=== PATIENT | female | born 1990 | race Caucasian/White ===

== ENCOUNTER 2016-12-21 11:21 | Emergency (ER) ==
--- NOTE | 2016-12-21 11:48 | PROVIDER DOCUMENTATION ---
HPI-Respiratory General - General Chief Complaint: Cold Symptoms Stated Complaint: FEVER,LEFT EAR PAIN,COUGHING,CONGESTED Time Seen by Provider: 12/21/16 11:36 Source: patient Allergies/Adverse Reactions: Patient Allergies Allergy/AdvReac Type Severity Reaction Status Date / Time No Known Allergies Allergy Verified 12/21/16 11:38 Home Medications: Home Medication List Medication Instructions Recorded Confirmed Last Taken Type Amoxicillin [Amoxil] 875 mg PO BID #14 tablet 12/21/16 Unknown Rx Benzonatate [Tessalon] 100 mg PO TID PRN PRN #20 capsule 12/21/16 Unknown Rx Escitalopram [Lexapro] 20 mg PO DAILY 12/21/16 12/21/16 12/20/16 History Fluticasone 50 Mcg Nasal [place] 1 spray YAMILE DAILY #1 bottle 12/21/16 Unknown Rx [Flonase] - History of Present Illness-Resp Nature of Presenting Problem: 26 y/o WF presents to ED with c/o cough x 6 days, fever, sore throat, L ear pain x 2 days. Pt states cough is not productive at this time. Reports fever of up to 103F at home. Is currently in rehab facility with 12 other women, who have had similar sxs. States hx of hepatitis C and has been taking motrin and fernando-selter for sxs, as she is limited to what she can take. Review of Systems - Adult - REVIEW OF SYSTEMS - ADULT Constitutional: reports: fever. denies: chills Eyes: reports: no symptoms reported. denies: blurred vision, double vision Ears, Nose, Mouth & Throat: reports: see HPI, ear pain, throat pain. denies: nose pain Cardiovascular: reports: no symptoms reported. denies: chest pain, palpitations Respiratory: reports: see HPI, cough. denies: dyspnea on exertion, shortness of breath Gastrointestinal: reports: no symptoms reported. denies: abdominal pain, diarrhea, nausea, vomiting Genitourinary: reports: no symptoms reported. denies: dysuria, frequency Musculoskeletal: reports: no symptoms reported. denies: joint pain, joint swelling Integumentary: reports: no symptoms reported. denies: nail changes, rash Neurological: reports: no symptoms reported. denies: numbness, paresthesia Psychiatric: reports: no symptoms reported Endocrine: reports: no symptoms reported. denies: cold intolerance, heat intolerance Hematologic/Lymphatic: reports: no symptoms reported. denies: easy bruising, prolonged bleeding Allergic/Immunologic: reports: no symptoms reported All Other Systems: Reviewed and Negative Past History - Adult - PAST MEDICAL HISTORY-ADULT Review of Records: reports: Nursing Assessment Review, Medications Reviewed Major Childhood Illnesses: reports: history unknown Cardiovascular: reports: denies history Respiratory: reports: denies history Gastrointestinal: reports: liver disease (hepatits C), ulcer Obstetrical/Gynecological: reports: endometriosis - PRIOR SURGERIES/PROCEDURES Surgical/Procedure History: reports: BTL, - IMMUNIZATION STATUS Childhood Immunizations: See Nurse Assessment Flu Vaccine: See Nurse Assessment - SOCIAL HISTORY Smoking: cigarettes, less than 1 pack/day Provider spent 3-5 mins advising pt. on dangers of tobacco.: Discussed manners to quit use, and f/u contacts for add'l counseling. Substance Use: none presently/history of abuse (heroin) Alcohol Use Frequency: never Living Situation: group (rehab) Physical Exam-General - PHYSICAL EXAM-ADULT Initial Vital Signs Reviewed: Yes - CONSTITUTIONAL General Appearance: alert, mild distress - EYES Eyes: pink conjunctivae - HEAD, EARS, NOSE, MOUTH & THROAT HENMT: normocephalic/atraumatic, moist mucous membranes, pharyngeal erythema. negative: tonsillar exudate - NECK Neck: supple, normal inspection. negative: lymphadenopathy - RESPIRATORY Respiratory: lungs clear, normal breath sounds. negative: crackles, rales, rhonchi, stridor, wheezing - CARDIOVASCULAR Cardiovascular: regular rate, rhythm. negative: bradycardia, tachycardia - GASTROINTESTINAL (ABDOMEN) Abdominal Exam: normal bowel sounds, non tender, soft. negative: distended, guarding, rigid, rebound - MUSCULOSKELETAL Back Exam: normal inspection Extremity: normal gait - SKIN Integumentary: normal color, normal turgor, warm/dry - NEUROLOGIC Neurologic: negative: aphasia - PSYCHIATRIC Psych/Mental Status: normal mood/affect, normal thought content, normal thought process, oriented x 3 Progress - PLAN OF CARE/RESULTS Progress/Plan/Lab Results: Orders Category Date Time Status CHEST-2 VIEWS [RAD] Stat Exams 12/21/16 11:42 Taken DIRECT STREP Stat Lab 12/21/16 11:44 Completed INFLUENZA SCREEN A/B Stat Lab 12/21/16 11:44 Completed Albuterol 2.5MG/Ipratrop 0.5MG [Duoneb (A & A)] Med 12/21/16 12:17 Discontinued 3 ml INH NOW ONE Dexamethasone [Decadron] Med 12/21/16 12:15 Discontinued 10 mg IM NOW ONE Aerosol Treatments Routine Oth 12/21/16 12:17 Active Aerosol Treatments Stat Oth 12/21/16 12:17 Active Vital Signs Temp Pulse Resp BP Pulse Ox 12/21/16 12:28 98.1 F 73 17 114/74 99 12/21/16 11:26 98.0 F 90 20 126/79 100 No Known Allergies Allergy (Verified 12/21/16 11:38) Amoxicillin [Amoxil] 875 mg PO BID #14 tablet 12/21/16 Benzonatate [Tessalon] 100 mg PO TID PRN PRN #20 capsule 12/21/16 Escitalopram [Lexapro] 20 mg PO DAILY 12/21/16 Fluticasone 50 Mcg Nasal [place] [Flonase] 1 spray YAMILE DAILY #1 bottle 12/21/16 influenza -, strep - Discussed medication use, return precautions, and f/u with pt. - XRAY 1 XRAY Study: Chest XRAY Interpretation: No PNA Departure - Departure Time of Disposition Order: 12:16 DIAGNOSIS: Bronchitis Disposition: HOME 01 Certified Medical Emergency: Emergent Condition: Stable Additional Instructions: Take medications as directed. Follow up with PCP if symptoms persist. ED Follow Up Instructions: You have been treated by a care provider in the Emergency Department. These instructions are being provided to you so you can have an understanding of how to care for yourself upon discharge. Upon discharge from the Emergency Department, you are responsible for making arrangements for follow-up care by a physician of your choice. Take all prescribed medications as directed. Return to the Emergency Department immediately for any new or worsening symptoms. You may call the Physician Referral phone number at [phone] to obtain a list of Physicians who are taking new patients. Prescriptions: Amoxicillin [Amoxil] 875 mg PO BID #14 tablet Fluticasone 50 Mcg Nasal [place] [Flonase] 1 spray YAMILE DAILY #1 bottle Benzonatate [Tessalon] 100 mg PO TID PRN PRN #20 capsule PRN Reason: Cough Referrals: None,PCP [Primary Care Provider] - Forms: Return to School/Parent Work Instructions: Acute Bronchitis Attestation - Physician/ GURWINDER Attestation Patient care was provided by Advanced Practice Provider:: Yes Advanced Practice Provider:: Sarah Petersen Advanced Practice Provider documentation review:: The Mid-level provider documentation, treatment plan and medical decision making was reviewed by the physician who agrees with all treatment and medical decision making by the MLP.
[2016-12-21] MEDS ORDERED: DECADRON IM ONE (12:15)
[2016-12-21] MEDS ORDERED: DUONEB (A & A) INH ONE (12:17)
[2016-12-21 12:30] VITALS: BP 114/74
--- NOTE | 2016-12-21 13:49 | Diag Imaging Result Document ---
PROCEDURE NAME: CHEST-2 VIEWS - 12/21/2016 PA AND LATERAL RADIOGRAPH OF THE CHEST: COMPARISON: None available. FINDINGS: The lungs are grossly clear. There is no discrete pleural fluid collection or evidence of pneumothorax. The cardiomediastinal silhouette and upper airway are grossly unremarkable. IMPRESSION: No evidence of acute chest pathology.
== END 2016-12-21 13:10 | disposition home or self-care (01) ==
LOC: ED 11:21
DX: J40 Bronchitis, not specified as acute or chronic (principal); R05 Cough; R50.9 Fever, unspecified; J02.9 Acute pharyngitis, unspecified; H92.02 Otalgia, left ear; B19.20 Unspecified viral hepatitis C without hepatic coma; F17.210 Nicotine dependence, cigarettes, uncomplicated; Z71.6 Tobacco abuse counseling; Z79.899 Other long term (current) drug therapy
CPT/HCPCS: 71020; 87081; 87430; 87804; 94640

== ENCOUNTER 2019-05-28 10:59 | Inpatient (IN) ==
[2019-05-28] MEDS ORDERED: ZOFRAN ODT PO PRN (13:04)
[2019-05-28] MEDS ORDERED: LIBRIUM PO PRN (13:04)
[2019-05-28] MEDS ORDERED: SINEMET 25/100 PO PRN (13:04)
[2019-05-28] MEDS ORDERED: ZOFRAN IV PRN (13:04)
[2019-05-28] MEDS ORDERED: MOTRIN PO PRN (13:04)
[2019-05-28] MEDS ORDERED: D5W 1,000 ML IV PRN (13:04)
[2019-05-28] MEDS ORDERED: TYLENOL PO PRN (13:04)
[2019-05-28] MEDS ORDERED: PHENOBARBITAL IV PRN (13:04)
[2019-05-28] MEDS ORDERED: DESYREL PO PRN (13:04)
[2019-05-28] MEDS ORDERED: MAALOX PLUS LIQUID PO PRN (13:04)
[2019-05-28] MEDS ORDERED: SENOKOT PO PRN (13:04)
[2019-05-28] MEDS ORDERED: ATARAX PO PRN (13:04)
[2019-05-28] MEDS ORDERED: IMODIUM PO PRN (13:04)
[2019-05-28] MEDS ORDERED: BENTYL PO PRN (13:04)
[2019-05-28] MEDS ORDERED: TUBERSOL ID ONE (13:04)
[2019-05-28] MEDS ORDERED: DULCOLAX PR PRN (13:04)
[2019-05-28] MEDS: ROBAXIN PO PRN (13:36)
[2019-05-28 13:59] LABS: UR AMPHETAMINES QUAL NONE DETECTED (NONE DETECT); UR BARBITUATES QUAL NONE DETECTED (NONE DETECT); UR BENZODIAZEPIN QUAL NONE DETECTED (NONE DETECT); UR CANNABINOIDS QUAL NONE DETECTED (NONE DETECT); UR COCAINE QUAL NONE DETECTED (NONE DETECT); UR METHADONE QUAL NONE DETECTED (NONE DETECT); UR METHAMPHETAMINE QUAL PRESUMPTIVE POSITIVE (NONE DETECT); UR OPIATES QUAL PRESUMPTIVE POSITIVE (NONE DETECT); UR OXYCODONE QUAL NONE DETECTED (NONE DETECT); UR PCP QUAL NONE DETECTED (NONE DETECT); UR PROPOXYPHENE QUAL NONE DETECTED (NONE DETECT); UR TCA QUAL NONE DETECTED (NONE DETECT)
[2019-05-28 14:07] LABS: HEMATOCRIT 36.2 % (37.0-47.0); HEMOGLOBIN 11.9 g/dL (12.0-16.0); MCH 28.9 PG (27-31); MCHC 32.9 g/dL (33-37); MCV 87.9 FL (81-99); MPV 8.8 FL (7.4-10.4); RBC 4.12 XMIL (4.2-5.4); RDW 12.1 % (11.5-14.5); WBC 4.94 X1000 (4.8-10.8)
[2019-05-28 14:26] LABS: AMYLASE 48 U/L (20-200); LIPASE 26 U/L (13-60)
[2019-05-28 14:27] LABS: INR 1.01; PROTIME 13.8 Seconds (11.0-16.0)
[2019-05-28 14:28] LABS: AGAP 10; ALBUMIN 4.2 g/dL (3.5-5.0); ALKALINE PHOSPHATASE 42 U/L (32-104); BUN 7 mg/dL (8-22); CALCIUM 8.8 mg/dL (8.8-10.2); CHLORIDE 105 mmol/L (98-107); COSMO 275; CREATININE 0.6 mg/dL (0.5-0.9); ESTIMATED GFR > 60; GLUCOSE 93 mg/dL (70-104); GOT 20 U/L (10-30); GPT 16 U/L (10-36); POTASSIUM 4.2 mmol/L (3.5-5.1); SODIUM 139 mmol/L (136-145); TCO2 25 mmol/L (25-35)
[2019-05-28 15:08] LABS: URINE SOURCE VOIDED
[2019-05-28 15:38] LABS: BILIRUBIN URINE NEGATIVE (NEGATIVE); BLOOD URINE NEGATIVE (NEGATIVE); CLARITY CLEAR (CLEAR); COLOR YELLOW; GLUCOSE URINE NEGATIVE (NEGATIVE); KETONE URINE NEGATIVE (NEGATIVE); LEUKOCYTES URINE NEGATIVE (NEGATIVE); NITRITE URINE NEGATIVE (NEGATIVE); PROTEIN URINE NEGATIVE (NEGATIVE); SP GRAVITY URINE 1.005; UROBILINOGEN URINE NORMAL
[2019-05-28] MEDS: SUBOXONE 2 MG/0.5 MG FILM SL SCH (17:12)
[2019-05-28] MEDS: NICODERM PATCH TD PRN (19:33)
[2019-05-28] MEDS: SEROQUEL PO PRN ×2 (19:51→23:40)
--- NOTE | 2019-05-28 22:30 | HISTORY AND PHYSICAL ---
CHIEF COMPLAINT: Nausea, vomiting. HISTORY OF PRESENT ILLNESS: Patient is a 28-year-old female who presented to [facility] secondary to nausea, vomiting, abdominal pain, myalgias, and paresthesias. Notes that she has started re-abusing opiates and she needs to get her life back. States that opiates have caused financial and work problems. She has not been able to see her daughter in a year and she wants to get a normal life back. SOCIAL HISTORY: She is , unemployed. Lives at home in [place]. PAST MEDICAL HISTORY: She has no chronic active medical problems. Does have a history of endometriosis, PTSD, anxiety, has history of blackouts during withdrawal issues, history of concussion when she was 13 years old, history of hypertension but not currently taking medications. MEDICATIONS: She is on no current prescription medicines. ALLERGIES: No known drug allergies. REVIEW OF SYSTEMS: CINA score is 15 secondary to nausea, vomiting, abdominal pain, myalgias, frequent paresthesias and sweating, frequent shivering, watery eyes, runny nose, fidgety, restless, unable sit still, difficulty concentrating SUBSTANCE ABUSE HISTORY: Patient was in treatment from October to August due to being in long term. She went to [facility] in 2014 and [place] in 2014 remained sober for 3 years. She was in [facility] in 2012 was kicked out due to use, was in [facility] in 2012 and remained sober for 9 months. She came to [facility] in June and remained sober for 6 to 7 months. She began drinking at 13, currently does not drink has not drank since last year. Started marijuana at 14, has not used in a few days. Started depressants at 20, has not used in 2 years, started stimulants at 20, is continued to use daily, started cocaine at 21 has not used in a year. Started opiates at 13, had been sober as noted previously however she is back to 3 roxies every couple of days, 100 mg morphine and heroin daily. Started nicotine as early as age 4. Currently smokes a half to 1 pack a day. FAMILY HISTORY: Positive for abuse. PHYSICAL EXAMINATION: Vital signs reviewed and stable. Patient is awake, alert, oriented. She is in no current respiratory distress. HEENT: Normocephalic. NECK: Supple. CARDIOVASCULAR: Regular rate. No murmurs. CHEST: Clear, nonlabored. ABDOMEN: Soft, nondistended, nontender. EXTREMITIES: Moves all extremities. No edema. SKIN: Warm, dry, no rashes. NEURO: No focal neurological changes. She is awake, alert, oriented x3. ASSESSMENT: 1. Nausea, vomiting. 2. Abdominal pain. 3. Paresthesias. 4. Paroxysmal sweating. 5. Chronic anxiety. 6. Opiate abuse withdrawal and stabilization. PLAN: Will admit patient the hospital, place her on [facility] protocol, place her on Suboxone, begin counseling. She plans to go to [facility] on discharge. Discussed with patient that she will need outpatient life counseling as well as drug counseling. She needs to avoid all substances that she is using to include over the counter which has caused her to relapse in the past. Further orders as needed. cc: Shoaib Young MD MTDD
[2019-05-29] MEDS: ROBAXIN PO PRN ×2 (01:08→15:19)
[2019-05-29] MEDS: PROTONIX PO SCH ×2 (05:12→06:23)
[2019-05-29] MEDS: SUBOXONE 2 MG/0.5 MG FILM SL SCH (05:12)
[2019-05-29] MEDS: THERA M PLUS PO SCH (09:54)
[2019-05-29] MEDS: FOLIC ACID PO SCH (09:54)
[2019-05-29] MEDS: SUBOXONE 8 MG/2 MG FILM SL SCH ×2 (09:55→21:12)
[2019-05-29] MEDS: VITAMIN B-1 PO SCH (09:55)
[2019-05-29] MEDS: NICODERM PATCH TD PRN (10:05)
--- NOTE | 2019-05-29 17:51 | PROGRESS NOTE ---
DATE: 05/29/2019 SUBJECTIVE: Patient notes she feels overall terrible. abdominal muscle aches, myalgias, lots of sweating. Feels as though she needs to increase Suboxone. PHYSICAL EXAMINATION: Vital Signs: Reviewed. General: She is awake, alert. She is in no respiratory distress. HEENT: Normocephalic. Neck: Supple. Cardiovascular: Regular rate. Chest: Clear. Abdomen: Soft. Extremities: Moves all extremities. ASSESSMENT: 1. Nausea and vomiting. 2. Abdominal pain. 3. Myalgias. 4. Paresthesias. 5. Paroxysmal sweating. 6. Opiate abuse, withdrawal, and stabilization. PLAN: We will continue the patient in the hospital. Continue counseling. We will increase Suboxone at her insistence due to withdrawal symptoms and will follow. cc: Shoaib Young MD MTDD
[2019-05-29] MEDS: SEROQUEL PO PRN (21:12)
[2019-05-30] MEDS: PROTONIX PO SCH (06:06)
[2019-05-30] MEDS: ROCEPHIN 1 GM in NS 50 ML IV SCH (10:13)
[2019-05-30] MEDS: VITAMIN B-1 PO SCH (10:13)
[2019-05-30] MEDS: FOLIC ACID PO SCH (10:13)
[2019-05-30] MEDS: FLAGYL PO SCH ×3 (10:13→21:08)
[2019-05-30] MEDS: THERA M PLUS PO SCH (10:13)
[2019-05-30] MEDS: SUBOXONE 8 MG/2 MG FILM SL SCH ×2 (10:13→21:08)
[2019-05-30] MEDS: NICODERM PATCH TD PRN (13:20)
[2019-05-30] MEDS: SEROQUEL PO PRN (21:32)
--- NOTE | 2019-05-30 21:35 | PROGRESS NOTE ---
DATE: 05/30/2019 SUBJECTIVE: Patient notes she feels tremendously better after having the 8 mg Suboxone last night. Denies any fevers, chills this morning. Denies any cough, congestion. Notes her nausea has improved. PHYSICAL EXAMINATION: Vital Signs: Reviewed and stable. She is awake, alert. She is in no respiratory distress, lying flat on the bed. HEENT: Normocephalic. Neck: Supple. Cardiovascular: Regular rate. Chest: Clear. Abdomen: Soft. Extremities: Moves all extremities. ASSESSMENT: 1. Nausea, vomiting. 2. Abdominal pain. 3. Myalgias. 4. Paresthesias. 5. Paroxysmal sweating. 6. Opiate abuse withdrawal and stabilization. 7. Chronic anxiety, depression. PLAN: Discussed with patient weaning Suboxone versus staying on the current dose. She desires to stay on the 8 twice a day. Notes that she will wean down slowly from home. States she feels that she will not be successful if she decreases or stops Suboxone currently. cc: Shoaib Young MD
[2019-05-31] MEDS: FLAGYL PO SCH ×3 (05:43→18:40)
[2019-05-31] MEDS: PROTONIX PO SCH ×2 (05:44→07:24)
[2019-05-31] MEDS: SUBOXONE 8 MG/2 MG FILM SL SCH ×2 (08:21→20:12)
[2019-05-31] MEDS: THERA M PLUS PO SCH (08:21)
[2019-05-31] MEDS: VITAMIN B-1 PO SCH (08:21)
[2019-05-31] MEDS: FOLIC ACID PO SCH (08:21)
[2019-05-31] MEDS: ROCEPHIN 1 GM in NS 50 ML IV SCH (08:21)
[2019-05-31 18:48] VITALS: BP 102/77
--- NOTE | 2019-06-01 07:47 | PROGRESS NOTE ---
DATE: 06/01/2019 SUBJECTIVE: Patient notes she is feeling much better with the recent Suboxone. PHYSICAL EXAMINATION: Vital Signs: Reviewed. General: Patient is awake and alert. She is in no distress. Cardiovascular: Regular rate. Chest: Clear. Abdomen: Soft. Extremities: Moves all extremities. ASSESSMENT: 1. Nausea and vomiting. 2. Abdominal pain, myalgias, and paresthesias. 3. Paroxysmal sweating. 4. Opiate abuse withdrawal and stabilization. PLAN: We will keep the patient in the hospital. Continue to follow. Hopefully, home this afternoon if arrangements can be made. cc: Shoaib Young MD
--- NOTE | 2019-06-05 19:50 | DISCHARGE SUMMARY ---
ADMISSION DATE: 05/28/2019 DISCHARGE DATE: 05/31/2019 DISCHARGE DIAGNOSES: 1. Nausea and vomiting. 2. Abdominal pain. 3. Myalgias. 4. Paresthesias. 5. Opiate abuse withdrawal and stabilization. CONSULTATIONS: None. PROCEDURES: None. BRIEF HOSPITAL COURSE: The patient is a 28-year-old female who presented to [facility] program secondary to nausea, vomiting, abdominal pain, myalgias and opiate abuse. She was admitted to the hospital and placed on Suboxone. Counseling was performed each day by myself. On discharge, she is awake and alert. She is in no distress. Overall, she notes she is feeling better. We attempted to wean down her Suboxone, but this was not successful. Therefore, we had to increase the dose to 8/2. At that point, she noted feeling much better. Her withdrawal symptoms have improved. She is feeling back alive and, therefore she will be discharged home. She will follow up outpatient with treatment facility of choice. cc: Shoaib Young MD
== END 2019-05-31 20:10 | disposition home or self-care (01) | DRG 897 ==
LOC: P.MEDSURG 12:31
PROVIDERS: ADMIT Family Medicine; ATTEND Family Medicine